=== PATIENT | female | born 1995 | race Two or more races ===

== ENCOUNTER 2019-06-15 11:26 | Emergency (ER) | payer SELFPAY ==
[~2019-06-15] VITALS: Ht 167.6 cm; Wt 75.0 kg
[2019-06-15 12:07] LABS: BILIRUBIN,URINE NEGATIVE (NEGATIVE); GLUCOSE, URINE (UA) NEGATIVE (NEGATIVE); KETONES,URINE NEGATIVE (NEGATIVE); LEUKOCYTE ESTERASE ,URINE NEGATIVE (NEGATIVE); NITRATE,URINE NEGATIVE (NEGATIVE); OCCULT BLOOD,URINE NEGATIVE (NEGATIVE); PH,URINE 5.5 (5.0-8.0); PROTEIN,URINE NEGATIVE (NEGATIVE); UROBILINOGEN,URINE 0.2 mg/dL (<=1.0)
[2019-06-15 12:12] LABS: APPEARANCE,URINE HAZY (CLEAR)
[2019-06-15] MEDS ORDERED: ONDANSETRON HCL 4 MG/2 ML VIAL IVP ONE (12:15)
[2019-06-15] MEDS ORDERED: KETOROLAC TROMETHAMINE 30 MG/ML VIAL IVP ONE (12:15)
[2019-06-15] MEDS ORDERED: SODIUM CHLORIDE 0.9% 1,000 ML IV ONE (12:15)
[2019-06-15 12:53] LABS: BASOPHILS % (AUTO) 0.2 % (0.0-2.0); EOSINOPHILS % (AUTO) 0.7 % (1.0-6.0); HEMATOCRIT 42.6 % (36-46); HEMOGLOBIN 13.9 g/dL (12.0-16.0); LYMPHOCYTES # (AUTO) 3.1 K/uL (1.0-4.8); LYMPHOCYTES % (AUTO) 35.7 % (22.0-44.0); MEAN CORPUSCULAR HEMOGLOBIN 28.8 pg (26.0-34.0); MEAN CORPUSCULAR HGB CONC 32.6 G/dL (31.0-37.0); MEAN CORPUSCULAR VOLUME 88 fL (80-100); MONOCYTES # (AUTO) 0.6 K/uL (0.1-1.0); MONOCYTES % (AUTO) 6.4 % (2.0-9.0); PLATELET COUNT (AUTO) 209 K/uL (150-450); RED BLOOD CELL COUNT(AUTO) 4.82 MIL/uL (4.00-5.20); RED CELL DISTRIBUTION WIDTH 13.4 % (11.5-14.5)
[2019-06-15 13:03] LABS: ANION GAP 6 mmol/L (8-16); CALCIUM, TOTAL 9.2 mg/dL (8.8-10.5); CARBON DIOXIDE 30 mmol/L (22-29); CHLORIDE 105 mmol/L (98-107); CREATININE 0.59 mg/dL (0.60-1.30); GLOMERULAR FILTR. RATE CALC > 60 mL/min (>60); GLUCOSE,RANDOM 95 mg/dL (70-110); POTASSIUM 4.1 mmol/L (3.5-5.1); SODIUM SERUM 141 mmol/L (136-145); UREA NITROGEN, BLOOD 11 mg/dL (7-18)
[2019-06-15 13:13] LABS: ALANINE AMINOTRANSFERASE 35 U/L (12-78); ALBUMIN 3.8 g/dL (3.4-5.0); ALKALINE PHOSPHATASE 98 U/L (46-116); ASPARTATE AMINOTRANSFERASE 13 U/L (15-37); BILIRUBIN,TOTAL 0.3 mg/dL (0.1-1.0); HCG,QUANTITATIVE < 1 mIU/mL (0-6); LIPASE 59 U/L (73-393); TOTAL PROTEIN, SERUM 7.7 g/dL (6.4-8.2)
[2019-06-15 14:32] VITALS: BP 84/48
== END 2019-06-15 15:35 | disposition home or self-care (01) ==
LOC: EMS 11:29
DX: R10.30 Lower abdominal pain, unspecified (principal); R11.2 Nausea with vomiting, unspecified
CPT/HCPCS: 36415; 76856; 80053; 81003; 83690; 84702; 85025; 96361; 96374; 96375; 99284; J1885; J2405; J7030

== ENCOUNTER 2019-12-18 06:37 | Emergency (ER) | payer MEDICAID ==
[~2019-12-18] VITALS: Ht 160 cm; Wt 84.1 kg
[2019-12-18] MEDS ORDERED: SODIUM CHLORIDE 0.9% 1,000 ML IV ONE (07:15)
[2019-12-18] MEDS ORDERED: KETOROLAC TROMETHAMINE 30 MG/ML VIAL IVP ONE (07:15)
[2019-12-18 08:52] VITALS: BP 116/69
== END 2019-12-18 09:14 | disposition home or self-care (01) ==
LOC: EMS 06:39
DX: J11.1 Influenza due to unidentified influenza virus with other respiratory manifestations (principal)
CPT/HCPCS: 96374; 99283; J1885; J7030

== ENCOUNTER 2021-03-20 13:46 | Emergency (ER) | payer MEDICAID ==
[~2021-03-20] VITALS: Ht 162.6 cm; Wt 65.9 kg
[2021-03-20 14:40] LABS: BASOPHILS % (AUTO) 0.2 % (0.0-2.0); EOSINOPHILS % (AUTO) 0.8 % (1.0-6.0); HEMATOCRIT 41.6 % (36-46); HEMOGLOBIN 13.8 g/dL (12.0-16.0); LYMPHOCYTES # (AUTO) 2.7 K/uL (1.0-4.8); LYMPHOCYTES % (AUTO) 35.1 % (22.0-44.0); MEAN CORPUSCULAR HEMOGLOBIN 27.9 pg (26.0-34.0); MEAN CORPUSCULAR HGB CONC 33.2 G/dL (31.0-37.0); MEAN CORPUSCULAR VOLUME 84 fL (80-100); MONOCYTES # (AUTO) 0.4 K/uL (0.1-1.0); MONOCYTES % (AUTO) 5.5 % (2.0-9.0); NEUTROPHILS # (AUTO) 4.5 K/uL (1.8-7.7); NEUTROPHILS % (AUTO) 58.4 % (40.0-70.0); PLATELET COUNT (AUTO) 221 K/uL (150-450); RED BLOOD CELL COUNT(AUTO) 4.94 MIL/uL (4.00-5.20); RED CELL DISTRIBUTION WIDTH 13.6 % (11.5-14.5)
[2021-03-20 15:04] LABS: ANION GAP 10 mmol/L (8-16); CALCIUM, TOTAL 9.2 mg/dL (8.8-10.5); CARBON DIOXIDE 27 mmol/L (22-29); CHLORIDE 101 mmol/L (98-107); CREATININE 0.66 mg/dL (0.60-1.30); GLOMERULAR FILTR. RATE CALC > 60 mL/min (>60); GLUCOSE,RANDOM 87 mg/dL (70-110); POTASSIUM 3.7 mmol/L (3.5-5.1); SODIUM SERUM 138 mmol/L (136-145); UREA NITROGEN, BLOOD 7 mg/dL (7-18)
[2021-03-20 15:17] LABS: APPEARANCE,URINE CLEAR (CLEAR); BILIRUBIN,URINE NEGATIVE (NEGATIVE); GLUCOSE, URINE (UA) NEGATIVE (NEGATIVE); KETONES,URINE NEGATIVE (NEGATIVE); LEUKOCYTE ESTERASE ,URINE NEGATIVE (NEGATIVE); NITRATE,URINE NEGATIVE (NEGATIVE); OCCULT BLOOD,URINE NEGATIVE (NEGATIVE); PROTEIN,URINE NEGATIVE (NEGATIVE); UROBILINOGEN,URINE 0.2 mg/dL (<=1.0)
[2021-03-20 15:29] LABS: ALANINE AMINOTRANSFERASE 28 U/L (12-78); ALBUMIN 4.2 g/dL (3.4-5.0); ALKALINE PHOSPHATASE 98 U/L (46-116); ASPARTATE AMINOTRANSFERASE 13 U/L (15-37); BILIRUBIN,TOTAL 0.4 mg/dL (0.1-1.0); CREATINE KINASE, TOTAL ONLY 129 U/L (26-192); TOTAL PROTEIN, SERUM 7.8 g/dL (6.4-8.2)
[2021-03-20 16:42] VITALS: BP 112/72
[2021-03-20] MEDS ORDERED: KETOROLAC TROMETHAMINE 30 MG/ML VIAL IVP ONE (16:45)
[2021-03-20] MEDS ORDERED: DEXAMETHASONE SOD PHOS 4 MG/ML 5 ML VIAL IVP ONE (16:45)
== END 2021-03-20 17:18 | disposition home or self-care (01) ==
LOC: EMS 14:07
DX: M54.31 Sciatica, right side (principal); M54.10 Radiculopathy, site unspecified; M25.531 Pain in right wrist; M54.5 Low back pain
CPT/HCPCS: 36415; 70450; 80053; 81003; 82550; 84703; 85025; 93005; 96374; 96375; 99285; J1100; J1885